=== PATIENT | female | born 1945 ===

== ENCOUNTER 2017-01-12 17:51 | Emergency (ER) | payer OTHER, MEDICARE, MEDICAID ==
[2017-01-12 18:03] VITALS: BP 177/82; PULSE 82; TEMP 98.8
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
[2017-01-12 20:23] VITALS: RESP 18; O2SAT 98
--- NOTE | 2017-01-13 07:26 | RAD ---
PROCEDURE: Radiographs of the Lumbar Spine. HISTORY: pain COMPARISON: No prior. FINDINGS: BONES: Normal alignment. No listhesis. No fracture. Mild moderate diffuse lumbar spondylosis with multilevel Schmorl's node indentations L1-L2 most notably DISC SPACES: L5-S1 disc space narrowing OTHER FINDINGS: Bilateral facet hypertrophic arthrosis right L4-5 and bilateral L5-S1. Atherosclerotic vascular calcification. Partly visualized is sclerotic right SI joint arthrosis IMPRESSION: No fracture or gross subluxation. Lateral view somewhat obliqued. Spondylosis and degenerative disc disease. Facet arthrosis. Right sacroiliac joint arthrosis
--- NOTE | 2017-01-13 07:30 | RAD ---
PROCEDURE: Cervical Spine Radiographs. HISTORY: Pain. COMPARISON: None. FINDINGS: BONES: Dens view limited. Leftward convexity cervical spine. Cervical spine straightening AP direction also C4-C5 C6 cervical spondylosis -bridging osteophytes C5-6. DISC SPACES: C5-6 and C6-7 disc space narrowing SOFT TISSUES: Normal. No prevertebral soft tissue swelling. OTHER FINDINGS: Diffuse apophyseal hypertrophic arthrosis left side greater than right -middle 1/3 segment most affected IMPRESSION: Cervical spondylosis. No fracture
--- NOTE | 2017-01-13 07:31 | RAD ---
HISTORY: pain COMPARISON: 07/31/2016 TECHNIQUE: Chest PA and lateral FINDINGS: LUNGS: No active pulmonary disease. PLEURA: No significant pleural effusion identified. No pneumothorax apparent. CARDIOVASCULAR: Normal. OSSEOUS STRUCTURES: Thoracic spondylosis VISUALIZED UPPER ABDOMEN: Normal. OTHER FINDINGS: None. IMPRESSION: No active disease.
== END 2017-01-12 20:23 | disposition home or self-care (01) ==
LOC: ED 17:51
DX: S16.1XXA Strain of muscle, fascia and tendon at neck level, initial encounter (principal); S20.211A Contusion of right front wall of thorax, initial encounter; V49.50XA Passenger injured in collision with unspecified motor vehicles in traffic accident, initial encounter; Y92.410 Unspecified street and highway as the place of occurrence of the external cause; M54.5 Low back pain

== ENCOUNTER 2017-05-05 11:38 | Inpatient (IN) | payer MEDICARE, MEDICAID ==
[2017-05-05] MEDS ORDERED: Iodixanol 320 MG/ML 100 ML BOTTLE IV ONE (11:51)
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
[2017-05-05 12:15] LABS: BASO # 0.01 K/mm3 (0.0-2.0); BASO % 0.2 % (0.0-3.0); EOS # 0.2 (0.0-0.7); EOS % 3.2 % (1.5-5.0); GRAN # 1.75 (1.4-6.5); GRAN % 37.3 % (50.0-68.0); HEMATOCRIT 39.7 % (36.0-48.0); LYMPH # 2.5 (1.2-3.4); LYMPH % 52.9 % (22.0-35.0); MEAN CELL VOLUME 85.6 fl (80.0-105.0); MEAN CORPUSCULAR HEMOGLOBIN 27.4 pg (25.0-35.0); MEAN PLATELET VOLUME 12.3 fl (7.0-11.0); MONO # 0.3 (0.1-0.6); MONO % 6.4 % (1.0-6.0); RED CELL DISTRIBUTION WIDTH 13.2 % (11.5-14.5); WHITE BLOOD COUNT 4.7 10^3/ul (4.5-11.0)
--- NOTE | 2017-05-05 12:18 | CT ---
PROCEDURE: CT HEAD WITHOUT CONTRAST. HISTORY: r/o stroke COMPARISON: None available. TECHNIQUE: Axial computed tomography images were obtained through the head/brain without intravenous contrast. Radiation dose: Total exam DLP = 781 mGy-cm. This CT exam was performed using one or more of the following dose reduction techniques: Automated exposure control, adjustment of the mA and/or kV according to patient size, and/or use of iterative reconstruction technique. FINDINGS: HEMORRHAGE: No intracranial hemorrhage. BRAIN: No mass effect or edema. No atrophy or chronic microvascular ischemic changes. VENTRICLES: Unremarkable. No hydrocephalus. CALVARIUM: Unremarkable. PARANASAL SINUSES: Unremarkable as visualized. No significant inflammatory changes. MASTOID AIR CELLS: Unremarkable as visualized. No inflammatory changes. OTHER FINDINGS: None. IMPRESSION: Normal CT of the Head.
[2017-05-05 12:23] LABS: INR 1.18 (0.93-1.08)
[2017-05-05 12:24] LABS: ALKALINE PHOSPHATASE 127 U/L (38-126); ALT/SGPT 111 U/L (7-56); AST/SGOT 94 U/L (14-36); BILIRUBIN,TOTAL 1.2 mg/dL (0.2-1.3); BLOOD UREA NITROGEN 12 mg/dL (7-21); CALCIUM 9.6 mg/dL (8.4-10.5); CARBON DIOXIDE 25 mmol/L (21-33); CHLORIDE 106 mmol/L (98-107); GFR AFRICAN-AMERICAN > 60; GLUCOSE,RANDOM 203 mg/dL (70-110); POTASSIUM 3.6 mmol/L (3.6-5.0); SODIUM 144 mmol/L (132-148)
--- NOTE | 2017-05-05 12:27 | RAD ---
PROCEDURE: CHEST RADIOGRAPH, 1 VIEW HISTORY: cva COMPARISON: None available. FINDINGS: LUNGS: Clear. PLEURA: No pneumothorax or pleural fluid seen. CARDIOVASCULAR: Normal. OSSEOUS STRUCTURES: No significant abnormalities. VISUALIZED UPPER ABDOMEN: Normal. OTHER FINDINGS: None. IMPRESSION: No active disease.
[2017-05-05 12:36] LABS: TROPONIN I < 0.01 ng/mL
[2017-05-05 13:49] LABS: VENOUS BLOOD GAS BASE EXCESS 2.3 mmol/L (0.0-2.0); VENOUS BLOOD PH 7.33 (7.32-7.43)
--- NOTE | 2017-05-05 14:54 | CARD ---
APPROVED REPORT EKG Measurement Heart [id number] <Conclusion> Normal sinus rhythm Nonspecific T wave abnormality Q in 3
[2017-05-05 16:51] VITALS: BMI 25.7
[2017-05-05] MEDS ORDERED: Influenza Vaccine 60 mcg/0.5 mL SYR (4YR UP) IM ONE (16:51)
[2017-05-05] MEDS ORDERED: Pneumococcal 23-Valent Vaccine IM ONE (16:51)
[2017-05-05 17:27] LABS: CHOLESTEROL 193 mg/dL (130-200)
--- NOTE | 2017-05-05 18:28 | MRI ---
PROCEDURE: MRI BRAIN WITHOUT CONTRAST HISTORY: r/o stroke COMPARISON: None. TECHNIQUE: Multiplanar, multisequence MR images of the brain were obtained without intravenous contrast enhancement. FINDINGS: HEMORRHAGE: None DWI: No evidence of an acute or early subacute infarction. BRAIN PARENCHYMA: No mass effect or edema. No significant atrophy. Minimal chronic periventricular white matter signal abnormality left than expected for patient age. Consistent with microvascular white matter ischemic change. VENTRICLES: Unremarkable. No hydrocephalus. CRANIUM: Unremarkable. ORBITS: Grossly unremarkable. PARANASAL SINUSES/MASTOIDS: Clear VASCULAR SYSTEM: Skull base flow voids intact. OTHER FINDINGS: None. IMPRESSION: Unremarkable non contrast enhanced MRI of the brain. No evidence of acute infarct.
--- NOTE | 2017-05-05 19:54 | CP.PCM.CON ---
<Eliza Tay - Last Filed: 05/05/17 20:53> History of Present Illness - History of Present Illness History of Present Illness: PGY-2 Neurology consult note for Dr. Hollingsworth's service 72 year old female, with past medical history of hypertension, hyperlipedemia, and diabetes,presents to the emergency department via EMS with a complaint of numbness and stuttering/ slurred speech. Patient states that she woke up this morning around 8:30 am with some perioral numbness, it seemed to progressively worsened until by 10:00 am. At that time she also reports the onset of stuttering, with difficulty of pronouncing words. She had an appointment with her GI doctor's office, there she was advised to come to the ED. She does not report headache, dizziness, chest pain ,focal weakness. Denies any recent illness. PMH: hypertension, hyperlipedemia, and diabetes PSH: none social history: denies smoking, alcohol use, illicit drug use allergy: NKDA home med: omeprazole, naproxen, cozaar, levocetirizine, cyclobenzaprine Review of Systems - Review of Systems All systems: reviewed and no additional remarkable complaints except (as states in HPI) Past Patient History - Past Social History Smoking Status: Never Smoked - CARDIAC Hx Cardiac Disorders: Yes Hx Hypertension: Yes Other/Comment: spider veins both legs - PULMONARY Hx Respiratory Disorders: No - NEUROLOGICAL Hx Neurological Disorder: No - HEENT Hx HEENT Problems: No - RENAL Hx Chronic Kidney Disease: No - ENDOCRINE/METABOLIC Hx Endocrine Disorders: No - HEMATOLOGICAL/ONCOLOGICAL Hx Blood Disorders: No - INTEGUMENTARY Hx Dermatological Problems: No - MUSCULOSKELETAL/RHEUMATOLOGICAL Hx Falls: No - GASTROINTESTINAL Hx Gastrointestinal Disorders: Yes (gastritis) Hx Gastroesophageal Reflux: Yes Other/Comment: recent mri of abd showed inflammation of the liver, 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 to follow up but because she was experiencing numbness weakness stutter, difficulty pronouncing words, left side weakness, weak facial muscles, left side of tongue heavy decided to see her pmd who is in the same building instead then came to ed - GENITOURINARY/GYNECOLOGICAL Hx Genitourinary Disorders: No - PSYCHIATRIC Hx Substance Use: No - SURGICAL HISTORY Hx Surgeries: No Other/Comment: tubal ligation tubes cut as per request of pt, tonsillectomy as a child, bladder lift Meds Allergies/Adverse Reactions: Allergies Allergy/AdvReac Type Severity Reaction Status Date / Time No Known Allergies Allergy Verified 01/12/17 18:03 - Medications Medications: Current Medications Losartan Potassium (Cozaar) 25 mg PO DAILY [facility] Physical Exam - Constitutional Appears: No Acute Distress - Head Exam Head Exam: ATRAUMATIC, NORMAL INSPECTION, NORMOCEPHALIC - Eye Exam Eye Exam: Normal appearance - ENT Exam ENT Exam: Mucous Membranes Moist - Respiratory Exam Respiratory Exam: NORMAL BREATHING PATTERN. absent: Respiratory Distress - Cardiovascular Exam Cardiovascular Exam: REGULAR RHYTHM. absent: Tachycardia - Extremities Exam Extremities exam: Positive for: normal inspection. Negative for: pedal edema - Neurological Exam Neurological exam: Alert, CN II-XII Intact, Oriented x3 - Expanded Neurological Exam Expanded Patient oriented to: person, place, time Speech: Fluid Speech Cranial nerves: EOM's Intact: Normal Cerebellar Function: Finger to Nose: Normal Upper motor neuron: Babinski Sign: Normal - Skin Skin Exam: Dry, Intact, Normal Color, Warm Results - Vital Signs Recent Vital Signs: Last Vital Signs Temp Pulse 60 05/05/17 18:00 Resp 16 05/05/17 16:37 BP 154/80 H 05/05/17 16:37 Pulse Ox 96 05/05/17 15:25 - Labs Result Diagrams: 05/05/17 12:10 05/05/17 12:10 Assessment & Plan - Assessment and Plan (Free Text) Assessment: 72 year old female, with past medical history of hypertension, hyperlipedemia, and diabetes,presents to the emergency department via EMS with a complaint of numbness and stuttering most likely HTN urgency. 1. HTN urgency 2. diabetes 3. hyperlipidemia - CT head was normal - MRI ordered, unremarkable - patient is no longer having neurological deficits - continue to control blood pressure Case reviewed and discussed with Dr. Hollingsworth <Alberto Hollingsworth - Last Filed: 05/06/17 05:56> Meds - Medications Medications: Current Medications Losartan Potassium (Cozaar) 25 mg PO DAILY [facility] Results - Vital Signs Recent Vital Signs: Last Vital Signs Temp 98.3 F 05/06/17 00:01 Pulse 58 L 05/06/17 02:00 Resp 20 05/06/17 00:01 BP 139/83 05/06/17 00:01 Pulse Ox 97 05/06/17 00:01 - Labs Result Diagrams: 05/05/17 12:10 05/05/17 12:10 Labs: Laboratory Results - last 24 hr 05/05/17 21:14 POC Glucose (mg/dL) 130 H Attending/Attestation - Attestation I have personally seen and examined this patient.: Yes I have fully participated in the care of the patient.: Yes I have reviewed all pertinent clinical information: Yes
[2017-05-06 00:20] VITALS: RESP 20
[2017-05-06 06:08] VITALS: TEMP 98.4; O2SAT 99
--- NOTE | 2017-05-06 06:09 | CP.PCM.PCO ---
Physician Communication Note - Physician Communication Note Physician Communication Note: mri brain normal. symptoms more of tia sec to htn. asa 81 mg DC HOME
[2017-05-06 09:50] VITALS: BP 145/79
[2017-05-06 11:24] VITALS: PULSE 87
--- NOTE | 2017-05-06 21:30 | HP ---
HISTORY OF PRESENT ILLNESS: The patient is a 72-year-old [place] female. History taken through the biology adjunct instructor, community mental health social worker, [place]. The patient states that she went to see Dr. Guerrero. She was having weakness, dizziness, left-sided numbness and tongue pain and left upper arm numbness. Because of the pain, she was stuttering. She has slurred speech. She also has left perioral numbness. She went to see her Dr. Guerrero, who advised her to come to Emergency Room. When I examined the patient, she has no symptoms. She is anxious and she want to go home for Thanksgiving. She denies any headache. No dizziness. No weakness. No numbness anymore. She states her tongue pain has gone. Her speech is normal. No nausea or vomiting. No palpitation. No chest pain. PAST MEDICAL HISTORY: Significant for hypertension, hyperlipidemia, borderline diabetes. SURGICAL HISTORY: Significant for tubal ligation and tonsillectomy. The patient states she lives with her daughter. SOCIAL HISTORY: Denies smoking, drinking or alcohol use. MEDICATIONS AT HOME: She is on losartan 25 mg daily, aspirin 81 daily, omeprazole 20 mg daily, naproxen 500 mg twice a day as needed and Flexeril as needed. REVIEW OF SYSTEMS: Not significant other than she is feeling dizzy and lightheaded at times. PHYSICAL EXAMINATION: GENERAL: She is awake, alert and oriented, able to communicate. VITAL SIGNS: She is afebrile, pulse 77, respirations 20, blood pressure 145/79. LUNGS: Bilateral fair airflow. No rhonchi or crackle. HEART: S1 and S2 audible. No murmur. ABDOMEN: Soft and nontender. No rebound. No guarding. NEUROLOGIC: The patient is awake, alert, oriented, able to communicate, ambulatory. No focal deficit. LABORATORY DATA: WBC 4.7, hemoglobin 12.7, hematocrit 39.7, platelets 149. PT 13.0, INR 1.18. Chemistry; sodium 144, potassium 3.6, chloride 106, CO2 of 25, BUN 12, and creatinine 0.8. Blood sugar of 130. AST 94, ALT 111, alkaline phosphatase 127. Urinalysis has been canceled. MRI of the brain is unremarkable. CT of the neck and chest is unremarkable. X-ray chest is negative. ASSESSMENT: 1. Left-sided numbness, etiology unclear. 2. The patient is asymptomatic now. 3. History of hypertension. 4. Borderline diabetes. PLAN: The patient is anxious to go home. She wants to go home for Thanksgiving. She is given prescription of routine Doppler and she is advised to follow with her PMD next week and she was told that her LFTs are abnormal they need to be followed and she might need abdominal sonogram that she states she will do as outpatient. Ayanna Villalta MD
--- NOTE | 2017-05-07 10:46 | CT ---
PROCEDURE: CT Angiography of the Brain. HISTORY: cva COMPARISON: None available. TECHNIQUE: CT angiography of the intracranial arteries was performed. Coronal and sagittal maximum intensity projection reformated images were generated. This CT exam was performed using one or more of the following dose reduction techniques: Automated exposure control, adjustment of the mA and/or kV according to patient size, and/or use of iterative reconstruction technique. FINDINGS: INTERNAL CEREBRAL ARTERIES: Unremarkable. The skull base, petrous, cavernous and supraclinoid segments are bilaterally widely patent. ANTERIOR CEREBRAL ARTERIES: Unremarkable. A1 and A2 segments are widely patent. Smaller distal branches unremarkable, as visualized. MIDDLE CEREBRAL ARTERIES: Unremarkable. M1 and M2 segments are widely patent. Perisylvian branches grossly symmetric. POSTERIOR CIRCULATION: Basilar Artery: Unremarkable. Distal Vertebral Arteries: Unremarkable. Posterior Cerebral Arteries: Unremarkable. Posterior Inferior Cerebellar Arteries: Unremarkable. ANEURYSM/ VASCULAR MALFORMATIONS: None. OTHER FINDINGS: None. IMPRESSION: Unremarkable CT Angiography of the Brain. PROCEDURE: CT Angiography of the neck with contrast HISTORY: cva COMPARISON: None available. TECHNIQUE: Contiguous axial images of the neck were obtained from the level of the skull-base to the superior mediastinum in the arteriographic phase of enhancement. Coronal and sagittal reformats or also generated. IV contrast dose: 100 cc of Omni 350 Radiation Dose - DLP: 527 mGy-cm This CT exam was performed using one or more of the following dose reduction techniques: Automated exposure control, adjustment of the mA and/or kV according to patient size, and/or use of iterative reconstruction technique. FINDINGS: RIGHT CAROTID ARTERIES: Common Carotid Artery: Normal. Carotid Bifurcation: Normal. Internal Carotid Artery:Normal. External Carotid Artery (proximal branches): Normal. LEFT CAROTID ARTERIES: Common Carotid Artery: Normal. Carotid Bifurcation: Normal. Internal Carotid Artery:Normal. External Carotid Artery (proximal branches): Normal. VERTEBRAL ARTERIES: Right Vertebral Artery: Normal. Left Vertebral Artery: Normal. OTHER FINDINGS: None. IMPRESSION: Normal CT Angiography of the neck.
== END 2017-05-06 13:16 | disposition home or self-care (01) | DRG 305 ==
LOC: ED 11:38 → ERH 14:52 → 2RSO 15:42
PROVIDERS: ADMIT Internal Medicine Nephrology; ATTEND Internal Medicine Nephrology
DX: I16.0 Hypertensive urgency (principal); E11.9 Type 2 diabetes mellitus without complications; E78.5 Hyperlipidemia, unspecified; I10 Essential (primary) hypertension; K14.6 Glossodynia; K21.9 Gastro-esophageal reflux disease without esophagitis; Z79.899 Other long term (current) drug therapy; Z79.82 Long term (current) use of aspirin

== ENCOUNTER 2018-06-09 07:16 | Inpatient (IN) | payer OTHER ==
--- NOTE | 2018-06-09 07:47 | ED PDOC ---
Arrival/HPI - General Chief Complaint: Medical Clearance Time Seen by Provider: 06/09/18 07:28 Historian: Patient - History of Present Illness Narrative History of Present Illness (Text): 73 yr old F w/ hx of HTN presents per MD referral to ED for pancreatic mass. Pt saw Dr. Redding (PMD) and was referred to ED after having a noted pancreatic mass on imaging at [facility] in early May. She notes that she was told to come in today. She notes that she originally had imaging done because she had epigastric pain. At this time however, patient denies any abdominal pain or any other complaints. No fever, chills or night sweats. No current chest pain, shortness of breath or abdominal pain. No dark or bloody stool. No vaginal d/c. No rashes. Symptom Onset: Gradual Symptom Course: Unchanged Activities at Onset: Light Context: Home Past Medical History - Provider Review Nursing Documentation Reviewed: Yes - Infectious Disease Hx of Infectious Diseases: None - Reproductive Menopause: Yes - Cardiac Hx Cardiac Disorders: Yes Hx Hypertension: Yes - Pulmonary Hx Respiratory Disorders: No - Neurological Hx Neurological Disorder: No - HEENT Hx HEENT Disorder: No - Renal Hx Renal Disorder: No - Endocrine/Metabolic Hx Diabetes Mellitus Type 2: Yes - Hematological/Oncological Hx Blood Disorders: No - Integumentary Hx Dermatological Disorder: No - Musculoskeletal/Rheumatological Hx Falls: No - Gastrointestinal Hx Gastrointestinal Disorders: Yes (gastritis) Hx Gastroesophageal Reflux: Yes Other/Comment: recent mri of abd showed inflammation of the liver, pt was on 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 to follow up but because she was experiencing numbness weakness stutter, difficulty pronouncing words, left side weakness, weak facial muscles, left side of tongue heavy decided to see her pmd who is in the same building instead then came to ed - Genitourinary/Gynecological Hx Genitourinary Disorders: No - Psychiatric Hx Psychophysiologic Disorder: Yes Hx Anxiety: Yes Hx Substance Use: No - Surgical History Other/Comment: tubal ligation tubes cut as per request of pt, tonsillectomy as a child, bladder lift - Anesthesia Hx Anesthesia: No Family/Social History - Physician Review Nursing Documentation Reviewed: Yes Family/Social History: No Known Family HX Smoking Status: Never Smoked Hx Alcohol Use: No Hx Substance Use: No Allergies/Home Meds Allergies/Adverse Reactions: Allergies No Known Allergies Allergy (Verified 01/12/17 18:03) Home Medications: Home Meds Medication Instructions Recorded Confirmed Losartan [Cozaar] 25 mg PO DAILY 01/12/17 06/09/18 Aspirin [Adult Low Dose Aspirin EC] 81 mg PO DAILY 05/06/17 06/09/18 Metoprolol Succinate [Kapspargo 25 mg PO DAILY 06/09/18 06/09/18 Sprinkle] amLODIPine [Norvasc] 5 mg PO DAILY 06/09/18 06/09/18 Review of Systems - Physician Review All systems were reviewed & negative as marked: Yes - Review of Systems Constitutional: Normal. absent: Fatigue, Weight Change Eyes: absent: Vision Changes, Photophobia ENT: absent: Hearing Changes, Tinnitus, TMJ Pain Respiratory: absent: SOB, Cough, Sputum, Wheezing Cardiovascular: absent: Chest Pain, Palpitations, Edema Gastrointestinal: absent: Abdominal Pain, Stool Changes, Constipation, Diarrhea, Nausea, Vomiting, Appetite Changes, Hematochezia, Hematemesis, Anorexia, Food Intolerance Genitourinary Female: absent: Dysuria, Frequency, Hematuria Musculoskeletal: absent: Arthralgias, Back Pain Skin: absent: Rash, Pruritis Neurological: absent: Headache, Dizziness, Focal Weakness Endocrine: absent: Diaphoresis, Polyuria Psychiatric: absent: Anxiety, Depression Physical Exam Vital Signs Reviewed: Yes Temperature: Afebrile Blood Pressure: Normal Pulse: Regular Respiratory Rate: Normal Appearance: Positive for: Well-Appearing, Non-Toxic, Comfortable Pain Distress: None Mental Status: Positive for: Alert and Oriented X 3 - Systems Exam Head: Present: Atraumatic, Normocephalic Pupils: Present: PERRL Extroacular Muscles: Present: EOMI Conjunctiva: Present: Normal Mouth: Present: Moist Mucous Membranes. No: Dry Pharnyx: Present: Normal. No: ERYTHEMA, EXUDATE Nose (External): Present: Atraumatic Neck: Present: Normal Range of Motion. No: Meningeal Signs, MIDLINE TENDERNESS Respiratory/Chest: Present: Clear to Auscultation, Good Air Exchange. No: Respiratory Distress, Accessory Muscle Use Cardiovascular: Present: Regular Rate and Rhythm. No: Murmurs, Normal S1, S2 Abdomen: Present: Normal Bowel Sounds. No: Tenderness, Distention, Peritoneal Signs Back: Present: Normal Inspection. No: CVA Tenderness, Midline Tenderness Upper Extremity: Present: Normal Inspection, Normal ROM, NORMAL PULSES. No: Cyanosis, Edema Lower Extremity: Present: Normal Inspection, NORMAL PULSES. No: Edema, CALF TENDERNESS Neurological: Present: GCS=15, CN II-XII Intact, Speech Normal Skin: Present: Warm, Dry, Normal Color. No: Rashes Psychiatric: Present: Alert, Oriented x 3, Normal Insight, Normal Concentration Medical Decision Making ED Course and Treatment: 06/09/18 07:58 73 yr old F w/ hx of HTN p/w referral from PMD Dr. Redding for Pancreatic mass. Pt denies any current pain. Abdomen non-ttp, no n/v. No chest pain or shortness of breath. No n/v, constipation or diarrhea. no GI or complaints. No other complaints. Appreciate consult w/ Dr. Redding: we are to admit to her service as obs, NPO, basic labs and place consult for Angela Stone (GI) Orders placed. Pt in NAD and agreeable to plan. 06/09/18 09:17 lab reviewed, mild elevated LFTS, no pain to RUQ. pt in NAD - Scribe Statement The provider has reviewed the documentation as recorded by the Masood Ricci Provider Scribe Attestation: All medical record entries made by the Scribe were at my direction and personally dictated by me. I have reviewed the chart and agree that the record accurately reflects my personal performance of the history, physical exam, medical decision making, and the department course for this patient. I have also personally directed, reviewed, and agree with the discharge instructions and disposition. Disposition/Present on Arrival - Present on Arrival Any Indicators Present on Arrival: No History of DVT/PE: No History of Uncontrolled Diabetes: No Urinary Catheter: No History of Decub. Ulcer: No History Surgical Site Infection Following: None - Disposition Have Diagnosis and Disposition been Completed?: Yes Diagnosis: Pancreatic mass Disposition: HOSPITALIZED Disposition Time: 07:53 Patient Problems: Current Active Problems Problem Status Onset Pancreatic mass Acute Condition: GOOD
[2018-06-09] MEDS ORDERED: Sodium Chloride 0.9% 1,000 ML IV SCH (08:00)
[2018-06-09 08:17] LABS: BASO # 0.01 K/mm3 (0.0-2.0); BASO % 0.2 % (0.0-3.0); EOS # 0.3 (0.0-0.7); EOS % 5.2 % (1.5-5.0); GRAN % 38.2 % (50.0-68.0); HEMOGLOBIN 12.7 g/dL (12.0-16.0); LYMPH # 2.6 (1.2-3.4); LYMPH % 49.7 % (22.0-35.0); MEAN CELL VOLUME 85.1 fl (80.0-105.0); MEAN CORPUSCULAR HEMOGLOBIN 27.4 pg (25.0-35.0); MEAN CORPUSCULAR HGB CONC 32.2 g/dl (31.0-37.0); MEAN PLATELET VOLUME 12.2 fl (7.0-11.0); MONO # 0.4 (0.1-0.6); MONO % 6.7 % (1.0-6.0); RBC 4.63 10^6/uL (3.5-6.1); WHITE BLOOD COUNT 5.2 10^3/uL (4.5-11.0)
[2018-06-09 08:48] LABS: ALBUMIN 4.8 g/dL (3.0-4.8); ALT/SGPT 84 U/L (7-56); AST/SGOT 82 U/L (14-36); BLOOD UREA NITROGEN 19 mg/dL (7-21); CALCIUM 9.8 mg/dL (8.4-10.5); GFR NON-AFRICAN AMERICAN > 60; LIPASE 298 U/L (23-300)
[2018-06-09] MEDS ORDERED: Iohexol 350 MG/100 ML VIAL ONE (08:55)
--- NOTE | 2018-06-09 10:31 | CP.PCM.CON ---
<Reno Chambers - Last Filed: 06/09/18 11:44> History of Present Illness - History of Present Illness History of Present Illness: PGY6 GI Fellow Consult Note Patient is a 73yo female with PMHx significant for HTN, diet controlled DM, TIA and hyperlipidemia who presented today at the guidance of Dr Redding for further evaluation of abnormal imaging. The patient states she is feeling well today but that earlier this month she was suffering with epigastric abdominal pain radiating to the back. At that time, she admits to having an abdominal ultrasound which was questionable for a pancreatic tail lesion along with liver lesions. She was sent to the ED for further evaluation and work up. Denies any change in appetite, weight loss, nausea, vomiting, change in bowel habits, rectal bleeding. 12 system ROS performed and negative except where stated PMHx: See HPI PSHx: Tubal ligation FHx: Discussed with patient and she denies significant family history Social: Denies tobacco, EtOH or illicit drug use Endo: EGD/Colonoscopy in 2017 at [facility] - unremarkable per patient though records not available for review Past Patient History - Infectious Disease Hx of Infectious Diseases: None - Past Social History Smoking Status: Never Smoked - CARDIAC Hx Cardiac Disorders: Yes Hx Hypertension: Yes - PULMONARY Hx Respiratory Disorders: No - NEUROLOGICAL Hx Neurological Disorder: No - HEENT Hx HEENT Problems: No - RENAL Hx Chronic Kidney Disease: No - ENDOCRINE/METABOLIC Hx Diabetes Mellitus Type 2: Yes - HEMATOLOGICAL/ONCOLOGICAL Hx Blood Disorders: No - INTEGUMENTARY Hx Dermatological Problems: No - MUSCULOSKELETAL/RHEUMATOLOGICAL Hx Falls: No - GASTROINTESTINAL Hx Gastrointestinal Disorders: Yes (gastritis) Hx Gastroesophageal Reflux: Yes Other/Comment: recent mri of abd showed inflammation of the liver, pt was on her way to see her weather stripper today to follow up but because she was experiencing numbness weakness stutter, difficulty pronouncing words, left side weakness, weak facial muscles, left side of tongue heavy decided to see her pmd who is in the same building instead then came to ed - GENITOURINARY/GYNECOLOGICAL Hx Genitourinary Disorders: No - PSYCHIATRIC Hx Psychophysiologic Disorder: Yes Hx Anxiety: Yes Hx Substance Use: No - SURGICAL HISTORY Other/Comment: tubal ligation tubes cut as per request of pt, tonsillectomy as a child, bladder lift - ANESTHESIA Hx Anesthesia: No Meds Allergies/Adverse Reactions: Allergies Allergy/AdvReac Type Severity Reaction Status Date / Time No Known Allergies Allergy Verified 06/09/18 11:58 - Medications Medications: Current Medications Amlodipine Besylate (Norvasc) 5 mg PO DAILY [facility] Sodium Chloride (Sodium Chloride 0.9%) 1,000 mls @ 100 mls/hr IV .Q10H ALEJANDRINA Last Admin: 06/09/18 08:18 Dose: 100 mls/hr Losartan Potassium (Cozaar) 25 mg PO DAILY [facility] Metoprolol Succinate (Toprol Xl) 25 mg PO DAILY [facility] Pantoprazole Sodium (Protonix Inj) 40 mg IVP DAILY [facility] Physical Exam - Constitutional Appears: Non-toxic, No Acute Distress - Eye Exam Eye Exam: EOMI, PERRL - ENT Exam ENT Exam: Mucous Membranes Moist - Respiratory Exam Respiratory Exam: Clear to Auscultation Bilateral. absent: Rales, Rhonchi, Wheezes - Cardiovascular Exam Cardiovascular Exam: RRR, +S1, +S2 - GI/Abdominal Exam GI & Abdominal Exam: Normal Bowel Sounds, Soft. absent: Distended, Firm, Guarding, Organomegaly, Rigid, Tenderness - Extremities Exam Extremities exam: Positive for: normal inspection. Negative for: pedal edema - Neurological Exam Neurological exam: Alert, Oriented x3 - Psychiatric Exam Psychiatric exam: Normal Affect, Normal Mood - Skin Skin Exam: Dry, Warm Results - Vital Signs Recent Vital Signs: Last Vital Signs Temp 98.0 F 06/09/18 10:26 Pulse 66 06/09/18 10:26 Resp 16 06/09/18 10:26 BP 130/68 06/09/18 10:26 Pulse Ox 98 06/09/18 10:26 - Labs Result Diagrams: 06/09/18 08:09 06/09/18 08:09 Labs: Laboratory Results - last 24 hr 06/09/18 06/09/18 08:09 08:09 WBC 5.2 RBC 4.63 Hgb 12.7 Hct 39.4 MCV 85.1 MCH 27.4 MCHC 32.2 RDW 13.0 Plt Count 185 MPV 12.2 H Gran % 38.2 L Lymph % (Auto) 49.7 H Conway % (Auto) 6.7 H Eos % (Auto) 5.2 H Baso % (Auto) 0.2 Gran # 2.00 Lymph # (Auto) 2.6 Conway # (Auto) 0.4 Eos # (Auto) 0.3 Baso # (Auto) 0.01 Sodium 141 Potassium 4.2 Chloride 106 Carbon Dioxide 27 Anion Gap 13 BUN 19 Creatinine 0.7 Est GFR ( Amer) > 60 Est GFR (Non-Af Amer) > 60 Random Glucose 159 H Calcium 9.8 Total Bilirubin 0.6 AST 82 H ALT 84 H Alkaline Phosphatase 124 Total Protein 9.5 H Albumin 4.8 Globulin 4.7 Albumin/Globulin Ratio 1.0 L Lipase 298 Assessment & Plan - Assessment and Plan (Free Text) Assessment: Patient is a 73yo female with PMHx significant for HTN, diet controlled DM, TIA and hyperlipidemia who presented today at the guidance of Dr Redding for further evaluation of abnormal imaging -Abnormal imaging of the pancreas Plan: -Per patient, no prior CT scan and unclear which study had revealed abnormality -CT a/p with IV contrast showing tail lesion, recommend MRI/MRCP w/wo to further evaluate -Plan for EGD/EUS/FNA tomorrow -Diet as tolerated, NPO past midnight - Date & Time Date: 06/09/18 Time: 09:00 <Angela Gross V - Last Filed: 06/09/18 22:07> Meds - Medications Medications: Current Medications Amlodipine Besylate (Norvasc) 5 mg PO DAILY [facility] Last Admin: 06/09/18 11:46 Dose: Not Given Sodium Chloride (Sodium Chloride 0.9%) 1,000 mls @ 100 mls/hr IV .Q10H [facility] Last Admin: 06/09/18 08:18 Dose: 100 mls/hr Losartan Potassium (Cozaar) 25 mg PO DAILY [facility] Last Admin: 06/09/18 11:46 Dose: Not Given Metoprolol Succinate (Toprol Xl) 25 mg PO DAILY [facility] Last Admin: 06/09/18 11:47 Dose: Not Given Pantoprazole Sodium (Protonix Inj) 40 mg IVP DAILY [facility] Last Admin: 06/09/18 11:47 Dose: Not Given Results - Vital Signs Recent Vital Signs: Last Vital Signs Temp 98.6 F 06/09/18 16:59 Pulse 72 06/09/18 17:15 Resp 18 06/09/18 17:15 BP 133/81 06/09/18 17:15 Pulse Ox 98 06/09/18 17:15 - Labs Result Diagrams: 06/09/18 08:09 06/09/18 08:09 Labs: Laboratory Results - last 24 hr 06/09/18 06/09/18 08:09 08:09 WBC 5.2 RBC 4.63 Hgb 12.7 Hct 39.4 MCV 85.1 MCH 27.4 MCHC 32.2 RDW 13.0 Plt Count 185 MPV 12.2 H Gran % 38.2 L Lymph % (Auto) 49.7 H Conway % (Auto) 6.7 H Eos % (Auto) 5.2 H Baso % (Auto) 0.2 Gran # 2.00 Lymph # (Auto) 2.6 Conway # (Auto) 0.4 Eos # (Auto) 0.3 Baso # (Auto) 0.01 Sodium 141 Potassium 4.2 Chloride 106 Carbon Dioxide 27 Anion Gap 13 BUN 19 Creatinine 0.7 Est GFR ( Amer) > 60 Est GFR (Non-Af Amer) > 60 Random Glucose 159 H Calcium 9.8 Total Bilirubin 0.6 AST 82 H ALT 84 H Alkaline Phosphatase 124 Total Protein 9.5 H Albumin 4.8 Globulin 4.7 Albumin/Globulin Ratio 1.0 L Lipase 298 Attending/Attestation - Attestation I have personally seen and examined this patient.: Yes I have fully participated in the care of the patient.: Yes I have reviewed all pertinent clinical information: Yes Notes (Text): This is an addendum to GI consult report dictated by the GI Fellow. The patient was seen and examined earlier. Medical records, lab studies, imagings were reviewed. Last 24 hours events reviewed. Agreed with the above treatment plan as outlined in GI Fellow 's notes with the addition of the following CT scan was reviewed Discussed with Dr. redding Previous imaging studies were eviewed radiologist Dr. Delgado Requested for MRCP with MRI of the pancreas with contrast to further evaluate the pancreatic tail lesion Scheduled for EUS evaluation tomorrow 06/09/18 22:05
--- NOTE | 2018-06-09 11:19 | CT ---
Date of service: 06/09/2018 PROCEDURE: CT Abdomen and Pelvis with and without intravenous contrast HISTORY: abnormal LFTs, pt states h/o panc lesion COMPARISON: 04/05/2017 TECHNIQUE: Axial images of the abdomen were obtained in the pre contrast, portal venous and delayed phases of enhancement. Coronal and sagittal reformats were generated. Contrast dose: Radiation dose: Total exam DLP = 409.29 mGy-cm. This CT exam was performed using one or more of the following dose reduction techniques: Automated exposure control, adjustment of the mA and/or kV according to patient size, and/or use of iterative reconstruction technique. FINDINGS: LOWER THORAX: Unremarkable. LIVER: Unremarkable. No gross lesion or ductal dilatation. GALLBLADDER AND BILE DUCTS: Unremarkable. PANCREAS: Relatively stable 2.8 x 1.7 centimeter mass in the pancreatic tail with diminished enhancement. The lesion is nonspecific in appearance. SPLEEN: Unremarkable. ADRENALS: Unremarkable. No mass. KIDNEYS AND URETERS: Unremarkable. No hydronephrosis. No solid mass. VASCULATURE: Unremarkable. No aortic aneurysm. aortic atherosclerotic calcification. BOWEL: Unremarkable. No obstruction. No gross mural thickening. APPENDIX: Normal appendix. PERITONEUM: Unremarkable. No free fluid. No free air. LYMPH NODES: Unremarkable. No enlarged lymph nodes. BLADDER: Unremarkable. REPRODUCTIVE: Unremarkable. BONES: No acute fracture. OTHER FINDINGS: Small fat containing umbilical hernia. IMPRESSION: Relatively stable 2.8 x 1.7 centimeter mass in the pancreatic tail with diminished enhancement. The lesion is nonspecific in appearance.
[2018-06-09] MEDS: Metoprolol Succinate 25 mg XL Tab PO SCH (11:47)
[2018-06-09 14:30] VITALS: BMI 26.2
[2018-06-09] MEDS ORDERED: Pneumococcal 23-Valent Vaccine IM ONE (14:31)
[2018-06-09] MEDS ORDERED: Influenza Vaccine 60 mcg/0.5 mL SYR (4YR UP) IM ONE (14:31)
--- NOTE | 2018-06-09 19:56 | HP ---
DATE OF EXAM: 06/09/2018 HISTORY OF PRESENT ILLNESS: Ms. Baker is a 73-year-old female, seen in office last week. She had a CAT scan abdomen and pelvis done at [facility] in [place] for abdominal pain that showed pancreatic mass around 2.8 cm at the tail of the pancreas. CAT scan done there also showed 1 lesion in the right lobe of the liver around 1.8 cm, suspicious for metastatic disease. She is admitted with abdominal pain. Repeat CAT scan of her abdomen and pelvis done from the ER again showed 2.8 cm mass in tail of the pancreas. No liver lesion appreciated. No nausea. No vomiting. Abdominal pain is stable. No active issues. PAST MEDICAL HISTORY: Hypertension, coronary artery disease, diabetes mellitus type 2, GE reflux, and anxiety. PAST SURGICAL HISTORY: Tubal ligation and tonsillectomy. PERSONAL HISTORY: Never smoke. No history of alcohol abuse. ALLERGIES: NO KNOWN DRUG ALLERGIES. HOME MEDICATIONS: Cozaar 25 mg daily, aspirin 81 mg daily, metoprolol 25 mg daily, and Norvasc 5 mg daily. REVIEW OF SYSTEMS: As per HPI. Rest of 12-point review of systems reviewed negative. PHYSICAL EXAMINATION GENERAL: Comfortable in bed, in no acute distress. VITAL SIGNS: Temperature 98.7, heart rate 80 per minute, blood pressure 120/70, and respiratory rate 18 per minute. HEENT: Pallor positive. NECK: No lymphadenopathy. CHEST: Air entry present and equal bilaterally. No added sound. CARDIOVASCULAR: S1 and S2 normal. No murmur or gallop. ABDOMEN: Soft and nontender. No hepatosplenomegaly. EXTREMITIES: No edema. CENTRAL NERVOUS SYSTEM: Alert and oriented x3. No focal sensory or motor deficit. LABORATORY DATA: White count 5.2, hemoglobin 12.7, hematocrit 39.4, platelet 185, granulocyte 38%, lymphocyte 49%. Sodium 141, potassium 4.2, bilirubin 0.6. AST is 82, ALT 84. Alkaline phosphatase 124. ASSESSMENT AND PLAN: 1. Pancreatic mass at the tail of pancreas. 2. Abdominal pain. PLAN: She will be admitted to the hospital. IV fluid at 80 mL an hour. Normal saline. N.p.o. for possible EUS and biopsy. GI consultation with Dr. Gross requested. Losartan 25 mg daily, metoprolol 25 mg daily, Protonix 40 mg IV daily, and amlodipine 5 mg daily. MRCP requested as per GI. Laura Redding MD
[2018-06-09] MEDS ORDERED: Gadodiamide 287 MG/ML VIAL (15ML) IV ONE (20:45)
[2018-06-10 08:30] LABS: BASO # 0.01 K/mm3 (0.0-2.0); BASO % 0.2 % (0.0-3.0); EOS # 0.4 (0.0-0.7); EOS % 6.9 % (1.5-5.0); GRAN # 1.62 (1.4-6.5); GRAN % 31.4 % (50.0-68.0); HEMOGLOBIN 11.4 g/dL (12.0-16.0); LYMPH # 2.8 (1.2-3.4); LYMPH % 54.6 % (22.0-35.0); MEAN CELL VOLUME 84.5 fl (80.0-105.0); MEAN CORPUSCULAR HEMOGLOBIN 26.8 pg (25.0-35.0); MEAN CORPUSCULAR HGB CONC 31.8 g/dl (31.0-37.0); MEAN PLATELET VOLUME 12.1 fl (7.0-11.0); MONO # 0.4 (0.1-0.6); MONO % 6.9 % (1.0-6.0); RBC 4.25 10^6/uL (3.5-6.1); WHITE BLOOD COUNT 5.2 10^3/uL (4.5-11.0)
[2018-06-10 08:36] LABS: INR 1.21
[2018-06-10 08:42] LABS: ALBUMIN 3.9 g/dL (3.0-4.8); ALT/SGPT 65 U/L (7-56); AST/SGOT 70 U/L (14-36); BLOOD UREA NITROGEN 13 mg/dL (7-21); GFR NON-AFRICAN AMERICAN > 60
[2018-06-10] MEDS: Metoprolol Succinate 25 mg XL Tab PO SCH (10:23)
--- NOTE | 2018-06-10 12:41 | MRI ---
Date of service: 06/09/2018 PROCEDURE: MRI Abdomen with and without contrast HISTORY: Evaluate pancreatic tail lesion COMPARISON: MRI 04/05/[address] 06/09/2018. TECHNIQUE: Multisequence, multiplanar MR images of the abdomen with and without gadolinium contrast enhancement. 15 cc of Omniscan FINDINGS: LIVER: Scattered small liver lesions are seen which demonstrate a ring-enhancing pattern. The largest lesion is seen in the left lobe measuring 16 mm. This is seen on image 143 series 11. Three separate lesions are seen in the right lobe on image 149 series 11. Lesions are also seen in the periphery of the posterior right lobe. GALLBLADDER: Unremarkable. SPLEEN: Unremarkable. PANCREAS: There is a 2 x 3 cm mass in the tail of the pancreas that is low in signal intensity on T2 weighted imaging. On the postcontrast dynamic images the lesion enhances peripherally with more central enhancement seen on delayed images. The lesion is stable in appearance. ADRENALS: Unremarkable. KIDNEYS: Unremarkable. AORTA: No aneurysm. ASCITES: None. PERITONEUM: Unremarkable. LYMPH NODES: Unremarkable. OTHER FINDINGS: None. IMPRESSION: There is a 2 x 3 cm mass in the tail of the pancreas that is low in signal intensity on T2 weighted imaging. On the postcontrast dynamic images the lesion enhances peripherally with more central enhancement seen on delayed images. Multiple small rim enhancing liver lesions suspicious for metastases.
[2018-06-10] MEDS ORDERED: Propofol 10 mg/ml Inj (20 ML) ONE ×2 (17:12→17:31)
[2018-06-10] MEDS ORDERED: ePHEDrine 50 mg/ml Inj ONE (17:33)
[2018-06-10] MEDS ORDERED: Sodium Chloride 0.9% 1,000 ML IV SCH (17:45)
[2018-06-10 18:27] VITALS: TEMP 97.8
--- NOTE | 2018-06-10 19:57 | PN ---
DATE: 06/10/2018 SUBJECTIVE: She is comfortable in bed, in no acute distress, underwent EGD with ultrasound and biopsy today. Discussed with Dr. Gross. She had a large pancreatic tail mass encasing the splenic artery. Few liver lesions on EUS. REVIEW OF SYSTEM: As per HPI. Rest of 12-point review of systems reviewed and negative. PHYSICAL EXAMINATION GENERAL: Comfortable in bed, in no acute distress. VITAL SIGNS: Temperature 98.7, heart rate is 80 per minute, blood pressure 110/70, respiratory rate 18 per minute, oxygen saturation 98% room air. HEENT: Normal. NECK: No lymphadenopathy. CHEST: Air entry present equal bilaterally. No added sound. CARDIOVASCULAR: S1 and S2 normal. No murmur. No gallop. ABDOMEN: Soft, nontender. No hepatosplenomegaly. EXTREMITIES: No edema. MEDICATIONS: Reviewed. ASSESSMENT AND PLAN: 1. Pancreatic mass. She will need further workup. CT PET scan will be arranged upon discharge from the hospital. 2. No active pain issues. Continue Cozaar 25 mg daily and Norvasc 5 mg daily. We will continue IV fluids. Possible discharge tomorrow if stable. We will allow clear liquids tonight. Laura Redding MD MTDD
--- NOTE | 2018-06-11 00:40 | CP.PCM.DIS ---
Provider - Provider Date of Admission: 06/09/18 07:55 Attending physician: Laura Redding MD Consults: 06/09/18 07:54 Consult [Physician Consult] Routine Comment: Consulting Provider: Angela Gross V Consulting Physician: Angela Gross V Reason for Consult: hx of pancreatic mass Time Spent in preparation of Discharge (in minutes): 55 Hospital Course - Lab Results Lab Results: Most Recent Lab Values WBC 5.2 10^3/uL (4.5-11.0) 06/10/18 08:15 RBC 4.25 10^6/uL (3.5-6.1) 06/10/18 08:15 Hgb 11.4 g/dL (12.0-16.0) L 06/10/18 08:15 Hct 35.9 % (36.0-48.0) L 06/10/18 08:15 MCV 84.5 fl (80.0-105.0) 06/10/18 08:15 MCH 26.8 pg (25.0-35.0) 06/10/18 08:15 MCHC 31.8 g/dl (31.0-37.0) 06/10/18 08:15 RDW 13.0 % (11.5-14.5) 06/10/18 08:15 Plt Count 161 10^3/uL (120.0-450.0) 06/10/18 08:15 MPV 12.1 fl (7.0-11.0) H 06/10/18 08:15 Gran % 31.4 % (50.0-68.0) L 06/10/18 08:15 Lymph % (Auto) 54.6 % (22.0-35.0) H 06/10/18 08:15 Maries % (Auto) 6.9 % (1.0-6.0) H 06/10/18 08:15 Eos % (Auto) 6.9 % (1.5-5.0) H 06/10/18 08:15 Baso % (Auto) 0.2 % (0.0-3.0) 06/10/18 08:15 Gran # 1.62 (1.4-6.5) 06/10/18 08:15 Lymph # (Auto) 2.8 (1.2-3.4) 06/10/18 08:15 Maries # (Auto) 0.4 (0.1-0.6) 06/10/18 08:15 Eos # (Auto) 0.4 (0.0-0.7) 06/10/18 08:15 Baso # (Auto) 0.01 K/mm3 (0.0-2.0) 06/10/18 08:15 PT 14.0 SECONDS (9.4-12.5) H 06/10/18 08:15 INR 1.21 06/10/18 08:15 Sodium 142 mmol/L (132-148) 06/10/18 08:15 Potassium 3.8 mmol/L (3.6-5.0) 06/10/18 08:15 Chloride 109 mmol/L (98-107) H 06/10/18 08:15 Carbon Dioxide 26 mmol/L (21-33) 06/10/18 08:15 Anion Gap 10 (10-20) 06/10/18 08:15 BUN 13 mg/dL (7-21) 06/10/18 08:15 Creatinine 0.6 mg/dl (0.7-1.2) L 06/10/18 08:15 Est GFR ( Amer) > 60 06/10/18 08:15 Est GFR (Non-Af Amer) > 60 06/10/18 08:15 Random Glucose 116 mg/dL (70-110) H 06/10/18 08:15 Calcium 9.0 mg/dL (8.4-10.5) 06/10/18 08:15 Total Bilirubin 1.1 mg/dL (0.2-1.3) 06/10/18 08:15 AST 70 U/L (14-36) H 06/10/18 08:15 ALT 65 U/L (7-56) H 06/10/18 08:15 Alkaline Phosphatase 103 U/L (38-126) 06/10/18 08:15 Total Protein 7.9 g/dL (5.8-8.3) 06/10/18 08:15 Albumin 3.9 g/dL (3.0-4.8) 06/10/18 08:15 Globulin 4.0 gm/dL 06/10/18 08:15 Albumin/Globulin Ratio 1.0 (1.1-1.8) L 06/10/18 08:15 Lipase 298 U/L (23-300) 06/09/18 08:09 - Hospital Course Hospital Course: 1. Pancreatic mass. 2. Abdominal Pain 3. Hypertension Hospital course : CT abdomen showed 3 cm mass at pancreatic tail. underwent EGD with ultrasound and biopsy today. Discussed with Dr. Gross. She had a large pancreatic tail mass encasing the splenic artery. Few liver lesions on EUS. Path pending. Tolerated procedure well. MRCP also done. PHYSICAL EXAMINATION GENERAL: Comfortable in bed, in no acute distress. VITAL SIGNS: Temperature 98.7, heart rate is 80 per minute, blood pressure 110/70, respiratory rate 18 per minute, oxygen saturation 98% room air. HEENT: Normal. NECK: No lymphadenopathy. CHEST: Air entry present equal bilaterally. No added sound. CARDIOVASCULAR: S1 and S2 normal. No murmur. No gallop. ABDOMEN: Soft, nontender. No hepatosplenomegaly. EXTREMITIES: No edema. MEDICATIONS: oxycodone 5 mg Q 8 hr prn for pain, senna colace BID, pepcid 20 mg PO BID. Continue home meds. Condition on discharge stable. Dispo : discharge home. FU : in office on 06/16/2018. discussed with daughter at length. discussed with patient. - Date & Time of H&P Date of H&P: 06/11/18 Discharge Plan - Follow Up Plan Condition: GOOD Disposition: HOME/ ROUTINE
[2018-06-11 08:14] VITALS: BP 123/66; PULSE 68; RESP 20; O2SAT 96
[2018-06-11] MEDS: Metoprolol Succinate 25 mg XL Tab PO SCH (09:31)
--- NOTE | 2018-06-11 14:40 | CP.PCM.PN ---
<Shankar Hernandez - Last Filed: 06/11/18 14:37> Subjective - Date & Time of Evaluation Date of Evaluation: 06/11/18 Time of Evaluation: 11:10 - Subjective Subjective: PGY-4 GI Fellow Prog Note Pt ambulating in room when seen this AM. States she is doing well, without complaints. Eager for possible DC today. 5 point ROS negative other than stated above. Objective - Vital Signs/Intake and Output Vital Signs (last 24 hours): Temp Pulse Resp BP Pulse Ox 97.8 F 68 20 123/66 96 06/11/18 08:14 06/11/18 09:31 06/11/18 08:14 06/11/18 09:31 06/11/18 08:14 Intake and Output: 06/11/18 06/11/18 06:59 18:59 Intake Total 900 Balance 900 - Labs Labs: 06/10/18 08:15 06/10/18 08:15 PT 14.0 SECONDS (9.4-12.5) H 06/10/18 08:15 INR 1.21 06/10/18 08:15 - Constitutional Appears: Well, No Acute Distress - Head Exam Head Exam: ATRAUMATIC, NORMAL INSPECTION - Eye Exam Eye Exam: EOMI. absent: Scleral icterus - ENT Exam ENT Exam: Mucous Membranes Moist. absent: Mucous Membranes Dry - Respiratory Exam Respiratory Exam: NORMAL BREATHING PATTERN. absent: Accessory Muscle Use, Respiratory Distress - GI/Abdominal Exam GI & Abdominal Exam: Soft. absent: Distended, Firm, Guarding, Rigid, Tenderness, Mass, Organomegaly, Pulsatile Mass Assessment and Plan - Assessment and Plan (Free Text) Assessment: 73yo female with PMHx significant for HTN, diet controlled DM, TIA and hyperlipidemia who presented today at the guidance of Dr Redding for further evaluation of abnormal imaging -Abnormal imaging of the pancreas: Mass seen within tail of pancreas. Plan: - s/p EUS with FNB on 06/10 - F/u biopsies - OK to DC with close outpatient f/u Pt seen and examined with Dr. Gross; please see attestation for further rec/changes. Shankar Hernandez, PGY-4 <Angela Gross V - Last Filed: 06/11/18 22:54> Objective - Vital Signs/Intake and Output Vital Signs (last 24 hours): Temp Pulse Resp BP Pulse Ox 97.8 F 68 20 123/66 96 06/11/18 08:14 06/11/18 09:31 06/11/18 08:14 06/11/18 09:31 06/11/18 08:14 - Labs Labs: 06/10/18 08:15 06/10/18 08:15 PT 14.0 SECONDS (9.4-12.5) H 06/10/18 08:15 INR 1.21 06/10/18 08:15 Attending/Attestation - Attestation I have personally seen and examined this patient.: Yes I have fully participated in the care of the patient.: Yes I have reviewed all pertinent clinical information, including history, physical exam and plan: Yes Notes (Text): This is an addendum to GI progress report dictated by the GI Fellow. The patien t was seen and examined earlier. Medical records, lab studies, imagings were reviewed. Last 24 hours events reviewed. Agreed with the above treatment plan as outlined in GI Fellow 's notes with the addition of the following patient is doing well No complaints of abdominal pain On exam abdomen soft no tenderness Advised follow-up with PCP, oncologist and in our office Contact details were given Discussed with Dr. Redding earlier 06/11/18 22:52
== END 2018-06-11 13:47 | disposition home or self-care (01) | DRG 440 ==
LOC: ED 07:16 → ERH 07:55 → 3RSO 11:09 → 3RNO 06-10 11:00
PROVIDERS: ADMIT Internal Medicine Medical Oncology; ATTEND Internal Medicine Medical Oncology
PROC: 0FBG8ZX Excision of Pancreas, Via Natural or Artificial Opening Endoscopic, Diagnostic (ICD-10-PCS; principal; 2018-06-10 15:45)
PROC: 0DB68ZX Excision of Stomach, Via Natural or Artificial Opening Endoscopic, Diagnostic (ICD-10-PCS; 2018-06-10 15:45)
DX: K86.9 Disease of pancreas, unspecified (principal); K29.50 Unspecified chronic gastritis without bleeding; K76.9 Liver disease, unspecified; E11.9 Type 2 diabetes mellitus without complications; I10 Essential (primary) hypertension; E78.5 Hyperlipidemia, unspecified; I25.10 Atherosclerotic heart disease of native coronary artery without angina pectoris; K21.9 Gastro-esophageal reflux disease without esophagitis; F41.9 Anxiety disorder, unspecified; Z86.73 Personal history of transient ischemic attack (TIA), and cerebral infarction without residual deficits; Z79.82 Long term (current) use of aspirin

== ENCOUNTER 2018-09-12 06:33 | Day surgery (SDC) | payer OTHER ==
[2018-09-07 17:15] VITALS: BMI 25.6
[2018-09-12 07:13] LABS: BASO # 0.01 K/mm3 (0.0-2.0); BASO % 0.2 % (0.0-3.0); EOS # 0.2 (0.0-0.7); EOS % 3.7 % (1.5-5.0); HEMOGLOBIN 12.7 g/dL (12.0-16.0); LYMPH # 3.5 (1.2-3.4); MEAN CELL VOLUME 85.8 fl (80.0-105.0); MEAN CORPUSCULAR HGB CONC 31.4 g/dl (31.0-37.0); MEAN PLATELET VOLUME 12.3 fl (7.0-11.0); MONO # 0.5 (0.1-0.6); MONO % 9.1 % (1.0-6.0); RBC 4.71 10^6/uL (3.5-6.1); RED CELL DISTRIBUTION WIDTH 12.6 % (11.5-14.5)
[2018-09-12 07:24] LABS: BLOOD UREA NITROGEN 16 mg/dL (7-21); CALCIUM 10.2 mg/dL (8.4-10.5); GFR NON-AFRICAN AMERICAN > 60
[2018-09-12 07:26] LABS: INR 1.19; PARTIAL THROMBOPLASTIN TIME 36.4 Seconds (26.9-38.3); PROTHROMBIN TIME 13.4 SECONDS (9.4-12.5)
[2018-09-12] MEDS ORDERED: Lidocaine PF 2% (5 ml) Inj (For Cardiac Arrhy) ONE ×2 (07:48→08:35)
[2018-09-12] MEDS ORDERED: Midazolam 2 MG/2 ML VIAL ONE ×2 (08:47→08:49)
[2018-09-12] MEDS ORDERED: Sodium Chloride 0.45% 1,000 ML IV SCH (09:45)
[2018-09-12 10:30] VITALS: RESP 20; TEMP 97.4; O2SAT 99
[2018-09-12 14:10] VITALS: BP 128/70; PULSE 72
--- NOTE | 2018-09-12 18:40 | VASCULAR ---
PROCEDURE: Ultrasound and fluoroscopic right internal jugular venous access port. CLINICAL HISTORY: Metastatic neuroendocrine carcinoma.Venous port for chemotherapy. PHYSICIAN(S): Kin Bob M.D. TECHNIQUE: The relative risks and indications of the procedure were explained to the patient and consent obtained. The patient was placed supine on the arteriogram table and the right neck and chest prepped and draped in the usual sterile fashion. Conscious sedation monitoring was provided throughout the procedure by a nurse. Antibiotics were given prior to the procedure. Under direct ultrasound guidance, the right internal jugular vein was punctured with a micro-puncture set. A 0.035 angled Glidewire was advanced into the IVC. A 4 cm incision was made below the right clavicle and the pocket blunted dissected. A 8 [place] single-lumen catheter, 21 cm long, was advanced to the SVC/RA junction. The catheter was trimmed and attached to the port. The port aspirates and injects easily. The port was placed in the pocket and closed in 2 layers. The patient tolerated the procedure well. IMPRESSION: Ultrasound and fluoroscopically placed right internal jugular venous access port.
== END 2018-09-12 12:07 | disposition home or self-care (01) ==
LOC: SDS 06:33
PROVIDERS: ATTEND Radiology Vascular & Interventional Radiology
DX: Z45.2 Encounter for adjustment and management of vascular access device (principal); C7A.8 Other malignant neuroendocrine tumors; I10 Essential (primary) hypertension; E11.9 Type 2 diabetes mellitus without complications; E78.5 Hyperlipidemia, unspecified; Z86.73 Personal history of transient ischemic attack (TIA), and cerebral infarction without residual deficits
CPT/HCPCS: 36415; 36571; 80048; 85025; 85610; 85730; 99152; 99153; C1769; C1788; J0690; J1644; J2250; J2405; J3010; J7030